=== PATIENT | male | born 1995 | race Caucasian/White ===

== ENCOUNTER 2017-09-09 21:43 | Emergency (ER) | payer OTHER ==
[~2017-09-09] VITALS: Ht 175.3 cm; Wt 75.0 kg
[2017-09-09 21:49] VITALS: BP 116/68; TEMP 97.8
[2017-09-09] MEDS ORDERED: VYVANSE50 MG PO (21:51)
[2017-09-09] MEDS ORDERED: PREDNISONE20 MG PO (22:41)
[2017-09-09 22:54] VITALS: PULSE 81
== END 2017-09-09 22:54 | disposition home or self-care (01) ==
LOC: COL.ER 21:43
DX: L50.9 Urticaria, unspecified (principal)
CPT/HCPCS: J1200; J2930